=== PATIENT | female | born 1980 ===

== ENCOUNTER 2016-12-16 16:16 | Emergency (ER) | payer SELFPAY ==
[2016-12-16 16:30] VITALS: BP 114/74
--- NOTE | 2016-12-16 17:47 | UC ---
Skin Complaint HPI - HPI Summary HPI Summary: WORKS [employer] AND FREQUENTLY GETS TICK BITES AND REMOVES TICKS. FOR THREE DAYS HAS HAD RED BULLSEYE RASH INCREASING IN SIZE ON RIGHT FLANK. HAS FELT FEVERISH AND ACHEY IN JOINTS AND MUSCLES - History of Current Complaint Chief Complaint: UCSkin Time Seen by Provider: 12/16/16 17:22 Stated Complaint: BUG BITE W/RASH Hx Obtained From: Patient Hx Last Menstrual Period: 12/08/16 Onset/Duration: Gradual Onset, Lasting Days, Worse Since - PROGRESSIVE Skin Exposure Onset/Duration: Weeks Ago, Worse Since: - FOUR DAYS Timing: Constant Onset Severity: Mild Current Severity: Moderate Location: Discrete - 20CM X 10 CM ERYTHEMATOUS AREA RIGHT FLANK Aggravating: Touch Associated Signs & Symptoms: Positive: Fever, Rash, Tenderness, Red Streaks Related History: Insect Bite/Sting, Possible Reaction to: Insect - Allergy/Home Medications Allergies/Adverse Reactions: Allergies Allergy/AdvReac Type Severity Reaction Status Date / Time No Known Allergies Allergy Verified 12/16/16 16:30 Review of Systems Constitutional: Fever, Fatigue Skin: Rash Eyes: Negative ENT: Negative Respiratory: Negative Cardiovascular: Negative Gastrointestinal: Negative Genitourinary: Negative Motor: Negative Neurovascular: Negative Musculoskeletal: Arthralgia, Myalgia Neurological: Negative Psychological: Negative All Other Systems Reviewed And Are Negative: Yes PMH/Surg Hx/FS Hx/Imm Hx Previously Healthy: Yes - Surgical History Surgical History: None - Family History Known Family History: Negative: Blood Disorder - Social History Occupation: Employed Full-time Lives: With Family Alcohol Use: Rare Substance Use Type: Marijuana Substance Use Comment - Amount & Last Used: rare Smoking Status (MU): Never Smoked Tobacco Physical Exam Triage Information Reviewed: Yes Appearance: Well-Appearing, No Pain Distress, Well-Nourished Vital Signs: Initial Vital Signs Temp 99.4 F 12/16/16 16:25 Pulse 101 12/16/16 16:25 Resp 20 12/16/16 16:25 BP 114/74 12/16/16 16:25 Pulse Ox 99 12/16/16 16:25 Vital Signs Reviewed: Yes Eye Exam: Normal ENT Exam: Normal ENT: Positive: Normal ENT inspection, Hearing grossly normal, Pharynx normal, TMs normal Dental Exam: Normal Neck exam: Normal Neck: Positive: Supple, Nontender, No Lymphadenopathy Respiratory Exam: Normal Respiratory: Positive: Chest non-tender, Lungs clear, Normal breath sounds, No respiratory distress, No accessory muscle use Cardiovascular Exam: Normal Cardiovascular: Positive: RRR, No Murmur, Pulses Normal Abdominal Exam: Normal Musculoskeletal Exam: Normal Musculoskeletal: Positive: Strength Intact, ROM Intact Neurological Exam: Normal Psychological Exam: Normal Skin: Positive: rashes - 20CM X 10 CM ERYTHEMATOUS AREA RIGHT FLANK Course/Dx - Differential Diagnoses - Skin Complaint Differential Diagnoses: Allergic Reaction, Cellulitis, Local Allergic Reaction, MRSA, Poison [place], Poison [place], Tinea, Varicella Zoster - Diagnoses Provider Diagnoses: ERYTHEMA MIGRANS RIGHT FLANK Discharge - Discharge Plan Condition: Stable Disposition: HOME Prescriptions: DOXYcycline CAP(*) [DOXYcycline 100MG CAP(*)] 100 mg PO BID #[id number] cap Patient Education Materials: Lyme Disease (ED), Tick Bite (ED) Referrals: [facility] [Outside] Ruperto JACOBO,James Martell [Medical Doctor] - Keanu Loza MD [Primary Care Provider] - Images Front/Back of Body, Lg ([place]): 1 - 20CM X 10 CM ERYTHEMATOUS AREA RIGHT FLANK
== END 2016-12-16 17:55 | disposition home or self-care (01) ==
LOC: UCEAST 16:16
DX: L53.8 Other specified erythematous conditions (principal)
CPT/HCPCS: 99212; G0463